=== PATIENT | male | born 1985 | race Caucasian/White ===

== ENCOUNTER → 2023-12-05 10:36 | Outpatient (REF) | payer BC, SELFPAY | LOC: CLAB 10:36 | PROVIDERS: ATTENDING PHYSICIAN Emergency Medicine | DX: J02.9 Acute pharyngitis, unspecified (principal) | CPT/HCPCS: 87070 ==

== ENCOUNTER 2025-08-30 00:36 | Emergency (ER) | payer BC, SELFPAY ==
[2025-08-30 00:38] VITALS: BP 169/105
[2025-08-30 02:17] LABS: Glucose - Point of Care 333 mg/dl (70-99)
--- NOTE | 2025-08-30 02:17 | ED.GENMED ---
History of Present Illness
General
Chief Complaint: Musculo-Skeletal Complaint
Time Seen by Provider: 08/30/25 01:24
Course
Orders/Labs/Results
Orders:
Orders
08/30/25 01:36
CR Shoulder, Trauma - Left Urgent
Comment:
Reason For Exam: left shoulder pain
08/30/25 01:56
Cervical Spine 4 or 5 Vw [CR Cervical Spine 4 Or 5 Vw] Urgent
Comment:
Reason For Exam: neck pain
08/30/25 02:11
Bedside Glucose- Treatment ONCE
Abnormal Lab Results
08/30/25
02:16
POC Glucose 333 H mg/dl
(70-99)
Vital Signs
Initial and Last Documented VS:
Initial Vital Signs
Temp Pulse Resp BP Pulse Ox
36.6 C 64 18 169/105 98
08/30/25 00:38 08/30/25 00:38 08/30/25 00:38 08/30/25 00:38 08/30/25 00:38
Last Documented Vital Signs
Temp Pulse Resp BP Pulse Ox
36.9 C 78 15 140/88 98
08/30/25 03:16 08/30/25 03:16 08/30/25 03:16 08/30/25 03:16 08/30/25 03:16
MDM/Problems Addressed
MDM/Problems Addressed:
Note:
CHIEF COMPLAINT(S)
Severe shoulder pain radiating down the back, persisting for one to two weeks, with significant exacerbation tonight.
HISTORY OF PRESENT ILLNESS
The patient is a 40-year-old male diat controlled TYPE II dm presenting with severe pain in L neck that radiates frmo there to his shoulder and down his bicep midway. The intensity of the pain reached a new peak tonight, prompting the emergency
visit. The patient denies previous similar episodes until this recent onset. he cannot recall inciting injury. 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
The pain does not worsen with movement, and there is no tenderness to touch. While the patient can move the shoulder freely, the pain remains constant and intense, interfering significantly with sleep, particularly while lying down. The patient
describes the pain as non-electric and persistent, not associated with exertion, and reports losing sleep due to discomfort over the previous night. The patient took ibuprofen and acetaminophen at different intervals without relief. He articulates
difficulty finding a comfortable sleeping position despite trying various pillows and mattress setups. He is experiencing considerable distress due to the inability to alleviate the pain through repositioning or [id number] medications.
no dizziness, blurry vision, ehadache, chiropractor visit, weakness or numbness in the arm, chest pain, shortness of breath, fever
DUNCAN on cpap
ADDITIONAL HISTORY OBTAINED FROM SOURCES OTHER THAN THE PATIENT
According to the patients own inquiry with a neighbor who is a healthcare professional, no specific diagnosis or intervention was suggested outside of potentially seeing a physician the following day.
PLAN
The plan involves considering a computed tomography angiography (CTA) to rule out any vascular issues in the neck, given the atypical nature of the pain�particularly that it does not exacerbate with movement. The patient will require intravenous
access and laboratory tests for the evaluation. Pain management options will be discussed, potentially including non-sedating analgesics, unless alternate transportation arrangements allow for stronger medication. Depending on the results, the
patient may be discharged with recommendations for follow-up care or further specialized diagnostic imaging, such as magnetic resonance imaging (MRI).
DIFFERENTIAL DIAGNOSIS
The Differential Diagnosis includes, in no particular order and is not limited to:
1. Cervical radiculopathy
2. Herniated cervical disc
3. Brachial plexus neuropathy
4. Thoracic outlet syndrome
5. Rotator cuff injury
6. Cervical spine arthritis
7. Cervical artery dissection
8. Muscle strain or sprain
9. Referred pain from myocardial ischemia
10. Cervical spondylosis
40-year-old male, history of type 2 diabetes diet-controlled, obstructive sleep apnea, obesity presents for atraumatic left neck pain that radiates to his left shoulder for the last week. 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
all day but does not recall any inciting injury. He mostly has pain at night when he tries to lay back. He does feel it when he is sitting and standing but it significantly worse at night. Specifically tonight he could not get any sleep and
decided to come in. He is taking ibuprofen and Tylenol or alternating doses without relief. It does not feel like an electric shocklike shooting pain but originates in the left side of his neck down through his trapezius and into his shoulder. It
is not worse with rotation or extension or flexion of his neck. He is not having any associated dizziness, blurred vision, arm numbness or tingling or weakness. Is not exertional. He has never had any disc herniations. There is no vascular
history. He has not visited a chiropractor. On exam he looks very comfortable seated upright on the side of the bed. He can rotate actively without any significant reproduction of his symptoms. I was able to reproduce the pain when I laid him
back however he can still move. he is not having any headache when he lays back.
He is not having any room spinning dizziness. Patient's neuroexam is intact. He has no significant tenderness to the paraspinal or trapezius muscles. He can fully rotate his shoulder
*Pulse Oximetry
SaO2: 98
Oxygen Mode of Delivery: Room air
ED Attending Note
-
Portions of this chart may have been created with voice recognition software.� Occasional wrong word or��sound alike� substitutions may have occurred due to the inherent limitations of voice recognition software.
Discharge Plan
Departure
Patient Disposition: Home (Routine Discharge)
Date of Disposition: 08/30/25
Time of Disposition: 02:34
Patient with high blood pressure during this ER visit?: Yes
Condition: Fair
Covid-19: Not Applicable
Discharge Problem:
Diabetes, Cervical radiculopathy, Muscle spasm
Instructions: Radiculopathy of the neck and back (including sciatica) (DC), BLOOD PRESSURE
Prescriptions:
New
diazepam [Valium] 5 mg tablet
5 mg PO BID PRN (Reason: muscle spasm) Qty: 10 0RF
hydrocodone-acetaminophen 5-325 mg tablet
1 tab PO Q8H PRN (Reason: Pain) Qty: 11 0RF
Referrals:
Chauncey Zaragoza MD [Family Provider, Internal Medicine]
Stand Alone Forms: Return to Work
Activity Restrictions/Additional Instructions:
your blood sugars too high for steroids. We need to get better control of this, he may need to start medication. Please call your family doctor this week. In the meantime for your pain is probably from a either pinched nerve or disc herniation.
The x-ray shows that your muscles are probably pulling on your spine causing it to be straight, indicating a muscle spasm. You also could have some degenerative changes. The x-rays will be reviewed by the radiologist in the morning. You may need
advanced imaging like an MRI for continued pain. We held off on any additional imaging because you had no other symptoms concerning for any vascular emergencies but should you get a headache, vision changes, dizziness, weakness in your facial
muscles or in your arm, any numbness etc. you need to return immediately. Otherwise you can take ibuprofen 4 tablets 800 mg 3 times a day with food for 3 to 5 days for inflammation. For muscle spasm you can use Valium 5 mg once or twice a day.
For pain you could do hydrocodone/Tylenol 1 tablet every 8 hours as needed. Use a stool softener when you are on this medication. Make sure to use your CPAP machine
Return for any concerns
Interventions
Interventions:
*Risk Screen - Suicide Last Done: 08/30/25 00:41
*General Assessment Last Done: 08/30/25 00:41
*Neglect/Abuse Screening Last Done: 08/30/25 00:41
*ED- Fall Risk Assessment Last Done: 08/30/25 00:41
*ED COVID-19 Vaccine History Last Done: 08/30/25 00:41
*ED Influenza Vaccine History Last Done: 08/30/25 00:41
*Nursing Disposition Last Done: 08/30/25 03:14
ED-Musculoskeletal Assessment Last Done: 08/30/25 01:18
Discharge Date and Time
Discharge Date/Time: 08/30/25 03:16
Print Language: POLISH
[2025-08-30 03:16] VITALS: BP 140/88
== END 2025-08-30 03:16 | disposition home or self-care (01) ==
LOC: EMR 00:36
PROVIDERS: EMERGENCY PHYSICIAN Student in an Organized Health Care Education/Training Program; FAMILY PHYSICIAN Internal Medicine
DX: M54.12 Radiculopathy, cervical region (principal); E11.9 Type 2 diabetes mellitus without complications; M62.838 Other muscle spasm; G47.33 Obstructive sleep apnea (adult) (pediatric)
CPT/HCPCS: 99284; 72050; 73030; 82962

== ENCOUNTER → 2025-09-04 07:40 | Outpatient (REF) | payer BC, SELFPAY | LOC: PAVMRI 07:40 | PROVIDERS: ATTENDING PHYSICIAN Student in an Organized Health Care Education/Training Program | DX: M54.12 Radiculopathy, cervical region (principal) | CPT/HCPCS: 72141 ==

== ENCOUNTER 2025-10-04 06:23 | Outpatient (RCR) | payer BC, SELFPAY | END 2025-10-04 23:59 | disposition home or self-care (01) | LOC: RPT 06:23 | PROVIDERS: ATTENDING PHYSICIAN Student in an Organized Health Care Education/Training Program; FAMILY PHYSICIAN Internal Medicine | DX: M54.12 Radiculopathy, cervical region (principal); Z73.6 Limitation of activities due to disability; M25.512 Pain in left shoulder | CPT/HCPCS: 97010; 97110; 97161 ==